=== PATIENT | female | born 1960 | race Caucasian/White ===

== ENCOUNTER 2018-06-05 11:22 | Emergency (ER) | payer OTHER ==
[~2018-06-05] VITALS: Ht 165.1 cm; Wt 65.7 kg
[2018-06-05 11:23] VITALS: BP 131/83
== END 2018-06-05 14:12 | disposition home or self-care (01) ==
LOC: ED 14:06
DX: H53.131 Sudden visual loss, right eye (principal); R42 Dizziness and giddiness; R11.0 Nausea
CPT/HCPCS: 70450; 99284